=== PATIENT | male | born 1965 | race Caucasian/White ===

== ENCOUNTER 2016-05-30 10:40 | Day surgery (SDC) | payer OTHER ==
[~2016-05-30] VITALS: Ht 177.8 cm; Wt 108.0 kg
[~2016-05-30 10:40] MED LIST: 0.9% Sodium Chloride 1,000 ML IV PRN; ASPI-973 PO; FLUO40CA PO; HYDR12.55 PO; NORT50CA PO; OMEG-38 PO; PARO25TA17 PO; PROP40TA5 PO; Sodium Chloride LOK Flush 10 mL Syringe IV PRN; fentaNYL-PF 50 mCg/mL 2 mL Inj IVPUSH PRN
[2016-05-30 11:08] VITALS: BP 156/96; PULSE 58; RESP 16; O2SAT 96
--- NOTE | 2016-05-30 12:55 | PCM.ENDCOL ---
Colonoscopy Date of Service: May 30, 2016 Physician Jorge Nobles MD Pre Procedure Diagnosis: Screening FIT positive Post Procedure Dx & Findings: Polyp hemorrhoids diverticula Procedure Colonoscopy PROCEDURE IN DETAIL: Prep adequate After unremarkable rectal examination the Olympus video colonoscope was inserted patient's anal canal and was advanced to cecum. Landmarks were identified including the ileocecal valve and appendiceal orifice. Scope was withdrawn systematically. Visualized colonic mucosa showed healthy shiny mucosa with normal healthy-appearing vasculature. In the ascending colon, there was a 5 mm polyp which was removed completely using cold snare. In the sigmoid colon there was a 2 cm polyp which was removed completely using hot snare. 4 resolution clip deployed due to pulsatile bleeding. Hemostasis achieved. In the sigmoid colon there were several small diverticuli however patient had some diverticulitis scattered all the way into the cecum. In the rectum retroflexion was done which showed hemorrhoids. Anal canal was inspected carefully on the way out and hemorrhoids noted. Impression Polyps 2 status post complete removal. Largest 2 cm polyp. Diverticuli Hemorrhoids Recommendation Repeat colonoscopy 3 years Diverticular diet. Presedation Assessment Risks and Benefits Informed consent was obtained from the patient after all risks and benefits including but not limited to drug reaction, infection, pain, bleeding, perforation, as well as alternatives were discussed. Patient monitoring Continuous pulse oximetry, cardiac monitoring, blood pressure monitoring, IV access, and oxygen at 2L per nasal cannula. Periprocedural Fentanyl: Fentanyl 100mcg Incrementally Midazolam: Midazolam 5mg Incrementally Complications There were no periprocedural complications identified. Post Procedure Plan Post Procedure Recommendations 1. Restrict activities today. 2. Resume normal activities in the morning. 3. Resume medications. 4. Patient informed of normal post procedure side effects as bloating, drowsiness, blood streaking in the stool. 5. average risk CRCS. If colon polyps come back as: -Hyperplastic- can repeat colonoscopy in 10 years -Tubular adenoma- repeat colonoscopy in 5 years -Tubulovillous/villous adenoma- repeat colonoscopy in 3 years -If any dysplasia- return to clinic as soon as possible 6. Please don't hesitate to call me with any questions. Jorge Nobles MD May 30, 2016 12:55
[2016-05-30 12:59] VITALS: BP 150/96; PULSE 58; O2SAT 96
[2016-05-30 13:11] VITALS: BP 130/74; PULSE 65; RESP 17; O2SAT 94
[2016-05-30 13:21] VITALS: BP 147/87; PULSE 58; RESP 17; O2SAT 95
--- NOTE | 2016-06-01 13:39 | PATH ---
SURGICAL PATHOLOGY Attending Physician:Jorge Nobles M.D. CASE STATUS: Signed Out PATIENT NAME: LEAH QUIROGA PID: [id number] : 1965 DATE COLLECTED:05/30/2016 20:07 SPECIMEN: 1: Colon, Biopsy 2: Colon, Biopsy CLINICAL HISTORY: 1). ASCENDING COLON POLYP X1 2). SIGMOID COLON POLYP X1 FINAL DIAGNOSIS: 1. Ascending Colon, Polyp, Biopsy: Multiple portions (approximately six) of sessile serrated adenoma. 2. Sigmoid Colon, Polyp, Biopsy: Tubular adenoma; negative for high-grade dysplasia. ICD10: K63.5 GROSS DESCRIPTION: The specimen is received in two formalin filled containers labeled with the patient's name. 1). The specimen is sublabeled "ascending colon polyp" and consists of multiple portions of tissue which aggregate to 0.6 x 0.4 x 0.4 CM. The specimen is entirely submitted in cassette 1A. 2). The specimen is sublabeled "sigmoid colon polyp" and consists of a 0.8 x 0.8 x 1.0 CM portion of tissue. The specimen is trisected and totally submitted in cassette 2A. 05/30/2016 [facility] ICD-9 CODES: CPT CODES: 1: 81570 2: 49996 Electronically Signed Out Lillian Reyes MD [facility], [place] [address] Technical component performed at [facility], [address] [place] [address] [address], [address]
== END 2016-05-30 23:59 | disposition home or self-care (01) ==
LOC: END 10:40
PROVIDERS: ATTEND Internal Medicine
DX: Z12.11 Encounter for screening for malignant neoplasm of colon (principal); D12.2 Benign neoplasm of ascending colon; D12.5 Benign neoplasm of sigmoid colon; K57.30 Diverticulosis of large intestine without perforation or abscess without bleeding; K64.8 Other hemorrhoids; I10 Essential (primary) hypertension; E78.5 Hyperlipidemia, unspecified; G47.00 Insomnia, unspecified; F41.9 Anxiety disorder, unspecified; F33.2 Major depressive disorder, recurrent severe without psychotic features; E66.9 Obesity, unspecified; Z68.32 Body mass index [BMI] 32.0-32.9, adult; Z79.82 Long term (current) use of aspirin
CPT/HCPCS: 45385; 99153; G0500; J7030